=== PATIENT | male | born 1960 | race Caucasian/White ===

== ENCOUNTER → 2024-06-30 16:24 | Outpatient (REF) | payer OTHER, SELFPAY | LOC: RAD 16:24 | PROVIDERS: ATTENDING PHYSICIAN Physician Assistant Medical; FAMILY PHYSICIAN Student in an Organized Health Care Education/Training Program | DX: M79.89 Other specified soft tissue disorders (principal) | CPT/HCPCS: 76882 ==

== ENCOUNTER 2024-07-08 19:32 | Inpatient (IN) | payer OTHER, SELFPAY ==
[2024-07-08] VITALS (7 sets, daily range): BP systolic 116–145; BP diastolic 59–104; BMI 43.9; BMI 44.3
--- NOTE | 2024-07-08 11:52 | ED.GENMED ---
History of Present Illness
<Nelly Guillory PA-C - Last Filed: 07/08/24 18:24>
General
Chief Complaint: Skin Problem
Source: patient
Exam Limitations: none
Time Seen by Provider: 07/08/24 11:49
Nursing documentation reviewed up to this point in time: agreed with
History of Present Illness
History of Present Illness:
This is a 63 y/o male with no past medical history presents emergency department today with concerns of swelling and redness of his left lower extremity. Patient states that this all started after he fell a few weeks ago. Patient states that he
was climbing up onto a boat when he fell on his left side onto the deck. Patient states that he had a small wound under his left thigh from this and then states that 2 weeks later, he started develop redness, swelling in his left thigh and
eventually his swelling progressed to his foot. Patient states that he has some pain with this as well. Patient denies any loss of sensation, denies any inability to ambulate. Patient saw his PCP who referred him to a general surgeon who ordered
a CT angio but it was not able to be completed because the insurance was taking too long to approve it. Patient denies any dizziness, lightheadedness, chest pain, shortness of breath. Patient denies any other injuries. Patient denies any fevers
or chills.
Review of Systems
<Nelly Guillory PA-C - Last Filed: 07/08/24 18:24>
Review of Systems
All Other Systems: ROS reviewed and negative except as documented in HPI and ROS
Phy Exam
<Nelly Guillory PA-C - Last Filed: 07/08/24 18:24>
Physical Exam
Physical Exam:
General: Patient is well appearing and in no acute distress; non-toxic
Skin: Warm and dry, abrasion noted to the left posterior thigh with surrounding erythema
Head: Normocephalic, atraumatic
Eyes: Sclera non-icteric. EOMs intact.
Cardiac: Regular rate
Peripheral Vascular: Swelling noted to the left lower extremity from the thigh to the dorsum of the foot. 2+ DP and PT pulses bilaterally.
Pulm: Normal respiratory effort
Musculoskeletal: Tenderness to palpation of the
Neuro: CN II-XII intact, no focal neurologic deficits.
Psychiatric: Appropriate mood and affect.
Course
<Nelly Guillory PA-C - Last Filed: 07/08/24 18:24>
Orders/Labs/Results
Orders:
Orders
07/08/24 12:12
CT Abd Aorta Angio W/ Run Off Urgent
Reason For Exam: left lower extremity redness and swelling
07/08/24 12:36
Complete Blood Count/With Diff Urgent
Comprehensive Metabolic Panel Urgent
PTT Urgent
Prothrombin Time Urgent
07/08/24 Dinner
Regular
07/08/24 15:47
Code Status As Directed
Resuscitation Status: Full Code
HYDROmorphone [Dilaudid] 0.5 mg IV Q2HPRN PRN
Ondansetron Injectable [Zofran] 4 mg IV Q6HPRN PRN
Activity As Directed
Activity Level: Out of Bed-Early Mobility
Intake/ Output As Directed
Frequency: Per unit guidelines
Vital Signs As Directed
Frequency: Per unit guidelines
07/08/24 16:00
Acetaminophen [Tylenol] 650 mg PO Q4HWA
07/09/24 02:00
Normosol (Mult Electrolytes) [Normosol-R/Plasmalyte-A] 1,000 ml IV 75 mls/hr
07/09/24 Breakfast
NPO
Allow oral meds: Yes
Allow clear liquids: No
NPO with Ice Chips: No
07/09/24 09:00
CeFAZolin SODIUM [Ancef] 3,000 mg Syringe [Syringe-Pump] 0 ml IV PRE PROCEDURE
Abnormal Lab Results
07/08/24
12:36
RBC 4.52 L 10^6/uL
(4.70-6.10)
Hgb 12.9 L g/dL
(13.0-18.0)
Hct 37.5 L %
(39.0-52.0)
Abs Immat Gran (auto) 0.1 H 10^3/uL
(0-0.05)
Absolute Monos (auto) 0.8 H 10^3/uL
(0.1-0.6)
Absolute Eos (auto) 0.8 H 10^3/uL
(0-0.7)
Immature Gran % 0.6 H %
(0-0.5)
Lymphocytes % 15.4 L %
(20.5-51.1)
Monocytes % 10.0 H %
(1.7-9.3)
Eosinophils % 10.1 H %
(0-6)
Glucose 121 H mg/dl
(70-99)
07/08/24 12:36
07/08/24 12:36
Vital Signs
Initial and Last Documented VS:
Initial Vital Signs
Temp Pulse Resp BP Pulse Ox
98.1 F 88 18 145/104 96
07/08/24 11:43 07/08/24 11:43 07/08/24 11:43 07/08/24 11:43 07/08/24 11:43
Last Documented Vital Signs
Temp Pulse Resp BP Pulse Ox
98.5 F 86 20 136/82 99
07/08/24 16:48 07/08/24 16:48 07/08/24 16:48 07/08/24 16:48 07/08/24 16:48
<Martir Mendez MD - Last Filed: 07/08/24 12:26>
Orders/Labs/Results
Orders:
Orders
07/08/24 12:12
CT Abd Aorta Angio W/ Run Off Urgent
Reason For Exam: left lower extremity redness and swelling
07/08/24 12:36
Complete Blood Count/With Diff Urgent
Comprehensive Metabolic Panel Urgent
PTT Urgent
Prothrombin Time Urgent
07/08/24 Dinner
Regular
07/08/24 15:47
Code Status As Directed
Resuscitation Status: Full Code
HYDROmorphone [Dilaudid] 0.5 mg IV Q2HPRN PRN
Ondansetron Injectable [Zofran] 4 mg IV Q6HPRN PRN
Activity As Directed
Activity Level: Out of Bed-Early Mobility
Intake/ Output As Directed
Frequency: Per unit guidelines
Vital Signs As Directed
Frequency: Per unit guidelines
07/08/24 16:00
Acetaminophen [Tylenol] 650 mg PO Q4HWA
07/09/24 02:00
Normosol (Mult Electrolytes) [Normosol-R/Plasmalyte-A] 1,000 ml IV 75 mls/hr
07/09/24 Breakfast
NPO
Allow oral meds: Yes
Allow clear liquids: No
NPO with Ice Chips: No
07/09/24 09:00
CeFAZolin SODIUM [Ancef] 3,000 mg Syringe [Syringe-Pump] 0 ml IV PRE PROCEDURE
Abnormal Lab Results
07/08/24
12:36
RBC 4.52 L 10^6/uL
(4.70-6.10)
Hgb 12.9 L g/dL
(13.0-18.0)
Hct 37.5 L %
(39.0-52.0)
Abs Immat Gran (auto) 0.1 H 10^3/uL
(0-0.05)
Absolute Monos (auto) 0.8 H 10^3/uL
(0.1-0.6)
Absolute Eos (auto) 0.8 H 10^3/uL
(0-0.7)
Immature Gran % 0.6 H %
(0-0.5)
Lymphocytes % 15.4 L %
(20.5-51.1)
Monocytes % 10.0 H %
(1.7-9.3)
Eosinophils % 10.1 H %
(0-6)
Glucose 121 H mg/dl
(70-99)
07/08/24 12:36
07/08/24 12:36
Vital Signs
Initial and Last Documented VS:
Initial Vital Signs
Temp Pulse Resp BP Pulse Ox
98.1 F 88 18 145/104 96
07/08/24 11:43 07/08/24 11:43 07/08/24 11:43 07/08/24 11:43 07/08/24 11:43
Last Documented Vital Signs
Temp Pulse Resp BP Pulse Ox
98.5 F 86 20 136/82 99
07/08/24 16:48 07/08/24 16:48 07/08/24 16:48 07/08/24 16:48 07/08/24 16:48
Tyralt;Nelly Guillory PA-C - Last Filed: 07/08/24 18:24>
MDM/Problems Addressed
Differential Diagnosis Includes:
ddx include cellulitis, hematoma, infected hematoma, dvt, abrasion, abscess
MDM/Problems Addressed:
This is a 63 y/o male with no past medical history presents emergency department today with concerns of swelling and redness of his left lower extremity. Patient states that this all started after he fell a few weeks ago. Patient states that he
was climbing up onto a boat when he fell on his left side onto the deck. He saw Dr. Wu as outpatient who is requesting CT angiography to assess for active bleeding, as well as blood work. This was obtained which reveals a posttraumatic plan to
perform fluid collection within the lateral subcutaneous tissues of the left lower extremity just above the knee. Dr. Wu came to evaluate the patient in the emergency department who plans to operate for surgical evacuation of the hematoma.
Patient admitted to general surgery service.
Chronic conditions affecting care:
n/a
Acute Exacerbation and/or Progression of Chronic Illness:
n/a
<Nelly Guillory PA-C - Last Filed: 07/08/24 18:24>
*Pulse Oximetry
Patient hypoxic: no
*Critical Care Note
Total Time (30-74mins, 75-104mins- exclusive of procedures): Not Applicable
Data Reviewed
Review of Other/Old Records Reveals: Records (Reviewed previous documentation from H&P from contusion of left thigh, patient had a left thigh mass which was removed operatively in the past) and Discharge Summary (no discharge summaries to review)
Source: patient and records
Prescriptions/Medications Considered But Not Given:
n/a
Further Testing Considered But Not Given:
n/a
<Nelly Guillory PA-C - Last Filed: 07/08/24 18:24>
Patient Management
Escalation/DeEscalation of care consider admission/obs:
Patient referred for admission
ED Attending Note
<Nelly Guillory PA-C - Last Filed: 07/08/24 18:24>
-
Portions of this chart may have been created with voice recognition software.� Occasional wrong word or��sound alike� substitutions may have occurred due to the inherent limitations of voice recognition software.
<Martir Mendez MD - Last Filed: 07/08/24 12:26>
ED Attending Note
Patient seen and examined by attending physician: Yes
I performed the substantive portion of visit, reviewed & personally made and approve the management plan that is documented in note by myself or DWAYNE.: Yes
ED Attending Note:
I have seen and evaluated the patient with a [id number] encounter. I have spoken to the [PA] and involved in the medical history, the physical exam, medical decision making.
Evaluation and management service: agree unless noted differently below.
Results interpretation: agree unless noted differently below.
63-year-old man presenting to the emergency department with swelling to his left leg. Patient states June 05 he fell off his boat onto the dock landing on his left thigh. About a week ago noticed some swelling to the area. Saw his primary care
doctor who recommended surgery follow-up. He was evaluated by Dr. Nash who ordered an outpatient CT scan however there was difficulty in obtaining it and patient's swelling did worsen over the past week so APPRENTICE PAINTER HAND who told him to come to the
emergency department for further evaluation. Some mild numbness tingling around the area. He is not on a blood thinner. No weakness. No fevers or chills. No drainage. On exam patient does have a large hematoma at the lateral aspect of the
distal thigh that wraps around to the posterior aspect with associated erythema and warmth. He does have a strong distal pulse. Differential consists of hematoma versus did hematoma/abscess versus active bleed given that it is worsening. Will
check blood work and obtain CTA. Disposition pending blood work/imaging and discussion with surgery.
Discharge Plan
Departure
Patient Disposition: Admit
Date of Disposition: 07/08/24
Time of Disposition: 15:08
Presentation/result/management discussed w/ accepting MD/DO: Dr. Wu, General Surge
Discharge Problem:
Hematoma of left thigh
Prescriptions:
No Action
naproxen sodium [Aleve] 220 mg Tablet
440 mg PO BIDPRN PRN (Reason: mild pain)
Referrals:
Jaciel Frausto MD [Family Provider] -
Interventions
Interventions:
*Risk Screen - Suicide Last Done: 07/08/24 11:43
*General Assessment Last Done: 07/08/24 11:43
*Neglect/Abuse Screening Last Done: 07/08/24 11:43
ED- Fall Risk Assessment Last Done: 07/08/24 12:38
*ED COVID-19 Vaccine History Last Done: 07/08/24 12:38
ED-Musculoskeletal Assessment Last Done: 07/08/24 12:38
ED-Skin Assessment Last Done: 07/08/24 12:38
Discharge Date and Time
Print Language: ALBANIAN
[2024-07-08 12:44] LABS: % Basophils 1.2 % (0-2); % Eosinophils 10.1 % (0-6); % Immature Granulocytes 0.6 % (0-0.5); % Lymphocytes 15.4 % (20.5-51.1); % Neutrophils 62.7 % (42.2-75.2); Absolute Basophils 0.1 10^3/uL (0-0.2); Absolute Eosinophils 0.8 10^3/uL (0-0.7); Absolute Immature Granulocytes 0.1 10^3/uL (0-0.05); Absolute Lymphocytes 1.2 10^3/uL (1.2-3.4); Absolute Monocytes 0.8 10^3/uL (0.1-0.6); Absolute Neutrophils 4.9 10^3/uL (1.4-6.5); Hematocrit 37.5 % (39.0-52.0); Hemoglobin 12.9 g/dL (13.0-18.0); Mean Corp Hgb Conc. 34.4 g/dL (33.0-37.0); Mean Corpuscular Hgb 28.5 pg (27.0-31.0); Mean Platelet Volume 9.4 fL (7.4-10.4); Nucleated Red Blood Cells % 0 % (-); Platelet Count 342 10^3/uL (130-400); Red Blood Cell Count 4.52 10^6/uL (4.70-6.10); Red Cell Dist. Width 12.2 % (11.5-14.5); White Blood Cell Count 7.8 10^3/uL (4.8-10.8)
[2024-07-08 12:52] LABS: INR 1.02
[2024-07-08 12:53] LABS: APTT 29.4 Sec (23.4-35.0)
[2024-07-08 13:07] LABS: ALT (SGPT) 38 U/L (0-50); AST (SGOT) 24 U/L (17-59); Albumin 3.8 g/dl (3.5-5.0); Alkaline Phosphatase 87 U/L (38-126); Blood Urea Nitrogen 20 mg/dl (9-20); Calcium 9.3 mg/dl (8.4-10.2); Carbon Dioxide 26 mmol/L (22-30); Chloride 104 mmol/L (98-107); Estimated Creatinine Clearance > 125 ml/min; Glucose 121 mg/dl (70-99); Potassium 4.3 mmol/L (3.5-5.1); Sodium 142 mmol/L (135-145); Total Bilirubin 1.1 mg/dl (0.2-1.3); Total Protein 6.8 g/dl (6.3-8.2); eGFR > 60.00
--- NOTE | 2024-07-08 15:20 | HPS.HSE ---
Family Physician
-
Family Physician: Jaicel Frausto
Chief Complaint
-
Left lower extremity pain and swelling
History of Present Illness
This is a 63-year-old male who presented to my office on 07/01/2024 for swollen left lateral thigh in the setting of a recent trauma/fall from standing onto a dock while trying to [place] a boat at the beginning of the month. There was some bruising
initially but a week before he saw me he developed's worsening swelling which prompted his visit. On exam he was motor sensor and intact but I was concerned for potential ongoing bleeding and ordered CTA which unfortunately his insurance company
was not able to complete in a timely manner. Since then the patient's symptoms have worsened which prompted him to come to the ED to be further evaluated. He states that his pain is significantly worse and he has noticed worsening redness along
the lateral aspect of his thigh. He denies any distal motor or sensory deficits but he feels like the skin around the thigh is certainly having some new numbness.
Medical History
Past Medical History
Past Medical History: Reports None
Past Surgical History: Reports Other
Additional Past Surgical History:
Of note, the patient did have an incision and drainage/evacuation of a hematoma on the medial aspect of his left lower extremity also secondary to a trauma. This was complicated by a prolonged wound healing course.
Social History
Tobacco: Non-smoker
Family History
Family History: Not pertinent
Allergies / Home Medications
Allergies reflects when Allergies were last updated in [email or web address].
Home Medications with original date entered in [email or web address]
Allergy/Medication List:
None
Review of Systems
-
A 12 point ROS was completed and negative except as noted: Yes
Physical Exam
Vital Signs
Vital Signs
Temp Pulse Resp BP Pulse Ox
98.5 F 77 20 121/73 97
07/08/24 12:38 07/08/24 12:38 07/08/24 12:38 07/08/24 13:00 07/08/24 13:15
Physical Exam
General: Well Developed
Respiratory: Clear
GI: Soft and Non Tender
Musculoskeletal: Edema, Left Lower Extremity and Other (The patient has significant swelling in the left upper extremity with worsening redness over the lateral and posterior aspect of the thigh.)
Neuro: Awake, AO x 3, No Motor Deficits and No Sensory Deficits
Laboratory Results
-
07/08/24 12:36
07/08/24 12:36
Laboratory Results
PT 14.0 Sec (11.4-14.6) 07/08/24 12:36
INR 1.02 07/08/24 12:36
APTT 29.4 Sec (23.4-35.0) 07/08/24 12:36
Total Bilirubin 1.1 mg/dl (0.2-1.3) 07/08/24 12:36
AST 24 U/L (17-59) 07/08/24 12:36
ALT 38 U/L (0-50) 07/08/24 12:36
Alkaline Phosphatase 87 U/L (38-126) 07/08/24 12:36
Data Reviewed
-
CT Scan: Image Personally Visualized and interpreted, Discussed with Physician and Discussed with Patient
Lab Data: Labs Reviewed by me and Discussed with Patient
Impression/Plan
-
IMPRESSION:
This is a 63-year-old male who presents with atraumatic left lower extremity hematoma that though no active bleed was noted on CTA, has worsened over the past week with now evolving skin threat. Motor or sensory still intact. Vitals stable.
Hemoglobin also stable.
PLAN:
Will admit to the general surgery service.
Rest, elevate leg as able, ice.
Okay for diet, n.p.o. at midnight.
No role for antibiotics at this time. 3 g of Ancef ordered on-call to the OR
Will plan for an open evacuation of the left lower extremity hematoma and possible closure over a drain either with myself or Dr. Padron.
Risks/Benefits/Alternatives, expected postoperative course and possible complications (bleeding, infection, injury to surrounding structures, acute/chronic pain) discussed at length. Patient wishes to proceed with surgery. All questions answered.
I spent 75 minutes in total for the care of this patient today including direct patient care and counseling, reviewing labs, imaging, coordination of care, as well as documentation.
[2024-07-08] MEDS: TYLENOL 650 MG PO (21:02)
[2024-07-08] MEDS: TYLENOL PO (21:05)
--- NOTE | 2024-07-08 21:20 | PTCARENOTE ---
Pt arrive to [facility] at 2015 from the ED on a stretcher. Pt walked to the bed from stretcher. Head to toe assessed and admission questions complete. Pt oriented to room and call stevens. Bed locked and in lowest position. Care ongoing.
[2024-07-09] VITALS (9 sets, daily range): BP systolic 126–140; BP diastolic 55–78
[2024-07-09] MEDS: TYLENOL PO ×3 (00:40→08:50)
[2024-07-09] MEDS: NORMOSOL-R/PLASMALYTE-A 1000 IV ×2 (01:57→20:14)
--- NOTE | 2024-07-09 06:03 | PTCARENOTE ---
1st set of CHG wipes complete. Linens and gown changed.
--- NOTE | 2024-07-09 08:46 | W.PN.GS2 ---
Today's Communication / Plan
-
`
Assessment / Plan
-
Assessment: 63 y/o male with large subcutaneous abscess/infected hematoma s/p fall 1 month ago with surrounding cellulitis
AFVSS
discussed indications for operative drainage which patient is in agreement with. I&D LLE abscess reviewed in detail including anticipated incision location, leaving wound open to heal by secondary intention vs primary closure over drains, need for
follow up washouts and wound management in the OR.
Plan: start Zosyn
will culture in OR
pt on OR schedule for today
Subjective Data
-
Date of Service: July 09, 2024
pt seen and examined
continued pain/swelling in left lateral LE
some drainage now noted - purulent
Objective Data
-
Intake and Output
07/08/24 07/09/24 07/10/24
06:59 06:59 06:59
Intake Total 615 / 615
Output Total 400 / 400
Balance 215 / 215
Intake:
Oral fluids 240 / 240
IV fluids (Total) 375 / 375
Output:
Urine, Voided 400 / 400
Other:
Number of approximated MODERATE 1
amounts of urine
Vital Signs
Temp Pulse Resp BP Pulse Ox
98.3 F 72 15 140/55 94
07/09/24 07:46 07/09/24 07:46 07/09/24 07:46 07/09/24 07:46 07/09/24 07:46
Lab Results
07/08/24 12:36
07/08/24 12:36
Calcium 9.3 mg/dl (8.4-10.2) 07/08/24 12:36
Total Bilirubin 1.1 mg/dl (0.2-1.3) 07/08/24 12:36
AST 24 U/L (17-59) 07/08/24 12:36
ALT 38 U/L (0-50) 07/08/24 12:36
Alkaline Phosphatase 87 U/L (38-126) 07/08/24 12:36
Total Protein 6.8 g/dl (6.3-8.2) 07/08/24 12:36
Albumin 3.8 g/dl (3.5-5.0) 07/08/24 12:36
Physical Exam
-
NAD AAOx3
LLE: motor sensory intact. lateral area superior to knee with large area of fluctuance, induration, erythema and warmth to touch
small skin ulcer with purulent drainage
[2024-07-09] MEDS: ZOSYN 50 IV ×3 (09:59→21:43)
--- NOTE | 2024-07-09 10:50 | CM ---
Patient seen at bedside.
IA completed.
Await OR - L leg hematoma
Patient lives in a 3 story home, 2 steps to enter. flight of steps down to basement & up to 2nd floor.
PLOF: Independent, driving
DME: Denies any equipment
Denies housing/transportation/utilities/food insecurities.
Had [facility] 4 years ago does not remember agency, denies rehab
Currently no needs.
PCP: Jaciel Frausto
Pharmacy: [facility]
PLAN: Home, CM to follow for needs.
--- NOTE | 2024-07-09 11:37 | PN.CDI ---
CDI
- -
CDI:
Physician Documentation Request
Admit Date: 07/08/24 19:32
Dear Doctor Nereida,
Clinical Indicators:
Height: 6ft 5in
Weight: 373 lbs 4.8 oz
BMI: 44.3
07/09 note, (obese)
If possible, please provide an associated diagnosis related to the abnormal BMI (> or = to 40), such as:
Obesity
BMI is not significant
Other
Use of terms such as suspected, likely, concern for, or probable (associated with a specific diagnosis that is being evaluated, monitored, or treated as if it exists) are acceptable and can be coded in the inpatient setting, when documented at the
time of discharge.
Thank you,
Randi Arnold RN BSN
CDI Specialist
available via [employer] text
Please use your independent medical judgment in providing your response.
--- NOTE | 2024-07-09 12:04 | W.SUR.PREOP ---
Pre-Operative Surgical Note
-
I have examined this patient prior to the performance of the scheduled procedure.
The patient's condition is unchanged from the time of the current History and
Physical and the patient is able to undergo the scheduled procedure.
--- NOTE | 2024-07-09 14:14 | W.IMMPOSTOP ---
Addendum entered and electronically signed by Franck Padron MD 07/09/24 14:25:
#[id number]
Original Note:
Surgical Immed Post Op Note
-
Primary Surgeon: Nereida
Assisting Surgeon: Tita Jorgensen
Pre-op Diagnosis: Left lower extremity abscess
Post-op Diagnosis: Left lower extremity subcutaneous abscess
Procedure Performed: Incision and drainage left lower extremity abscess with pulse irrigation lavage washout and primary closure over close suction drain
Anesthesia Type: LMA +0.25% Marcaine 20 mL
Specimen / Cultures: None/abscess fluid for culture
Estimated Blood Loss: 30 mL
Complications: None immediate
Operative Findings: Deep subcutaneous abscess cavity without muscle involvement. No necrotic tissue. 3 L saline utilized for pulse irrigation lavage/debridement of cavity. 19 Venkatesh drain placed for close suction drainage of abscess cavity. Skin
closed with interrupted 2-0 nylon sutures.
Plan: Continue Zosyn pending culture results and sensitivities
Local wound care
Maintain NELY
Updated patient's postoperatively via phone call
[2024-07-09] MEDS: TYLENOL 650 MG PO (16:03)
--- NOTE | 2024-07-09 16:15 | PTCARENOTE ---
pt received from PACU to room 2112 at 1605. pt arrived drowsy but easily arousable. LLE dsg w/william wrap clean and dry, NELY drain present w/minimal serosanguineous output. + neurovascular check to LLE. + pedal pulse noted. at bedside. care
ongoing.
[2024-07-09] MEDS: LOVENOX 40 MG SC (18:08)
[2024-07-09] MEDS: DILAUDID 0.5 MG IV ×2 (18:18→21:51)
[2024-07-10] VITALS (7 sets, daily range): BP systolic 111–138; BP diastolic 64–86
[2024-07-10] MEDS: ZOSYN 50 IV ×4 (04:13→21:40)
[2024-07-10 06:06] LABS: Hematocrit 36.9 % (39.0-52.0); Hemoglobin 12.3 g/dL (13.0-18.0); Mean Corp Hgb Conc. 33.3 g/dL (33.0-37.0); Mean Corpuscular Hgb 29.1 pg (27.0-31.0); Mean Corpuscular Volume 87.4 fL (80.0-94.0); Mean Platelet Volume 9.6 fL (7.4-10.4); Platelet Count 375 10^3/uL (130-400); Red Blood Cell Count 4.22 10^6/uL (4.70-6.10); Red Cell Dist. Width 11.9 % (11.5-14.5); White Blood Cell Count 7.3 10^3/uL (4.8-10.8)
[2024-07-10] MEDS: NORMOSOL-R/PLASMALYTE-A IV (06:26)
--- NOTE | 2024-07-10 09:38 | W.PN.GS2 ---
Addendum entered and electronically signed by JUAN LUIS Cunningham 07/10/24 15:41:
Dx of morbid obesity present
Original Note:
Today's Communication / Plan
-
local wound care and IV abx
Assessment / Plan
-
Assessment: 63 y/o male with large subcutaneous abscess/infected hematoma s/p fall 1 month ago with surrounding cellulitis
POD #1 Incision and drainage left lower extremity abscess with pulse irrigation lavage washout and primary closure over close suction drain
AFVSS
OR cx pending
Dressing changed at bedside
Plan: continue Zosyn
follow wound cx
local wound care
anticipate transition to PO abx and discharge tomorrow
drain will remain in place upon dc. consult placed to Cm for [facility] arrangements
Subjective Data
-
Date of Service: July 10, 2024
Patient seen and examined at bedside with Dr. Wu. Denies significant pain. OOB to chair.
Objective Data
-
Intake and Output
07/09/24 07/10/24 07/11/24
06:59 06:59 06:59
Intake Total 615 / 615 3540 / 3540
Output Total 400 / 400 1620 / 1620
Balance 215 / 215 1920 / 1920
Intake:
Oral fluids 240 / 240 1740 / 1740
IV fluids (Total) 375 / 375 1700 / 1700
IV piggybacks 100 / 100
Output:
Drain Output (Total) 70 / 70
Left Upper Leg Nakul-Taylor 30 / 30
Right Lower Leg Nakul-Taylor 40 / 40
Urine, Voided 400 / 400 1550 / 1550
Other:
Number of approximated MODERATE 1
amounts of urine
Vital Signs
Temp Pulse Resp BP Pulse Ox
97.6 F 62 15 118/72 97
07/10/24 07:18 07/10/24 07:18 07/10/24 07:18 07/10/24 07:18 07/10/24 07:18
Lab Results
07/10/24 04:48
07/08/24 12:36
Calcium 9.3 mg/dl (8.4-10.2) 07/08/24 12:36
Total Bilirubin 1.1 mg/dl (0.2-1.3) 07/08/24 12:36
AST 24 U/L (17-59) 07/08/24 12:36
ALT 38 U/L (0-50) 07/08/24 12:36
Alkaline Phosphatase 87 U/L (38-126) 07/08/24 12:36
Total Protein 6.8 g/dl (6.3-8.2) 07/08/24 12:36
Albumin 3.8 g/dl (3.5-5.0) 07/08/24 12:36
Physical Exam
-
NAD AAOx3
LLE: motor sensory intact. lateral incision superior to knee with intact sutures, ecchymosis medially with mild edema present. NELY drain with SSF. Dressing changed.
[2024-07-10] MEDS: DILAUDID 0.5 MG IV (11:40)
--- NOTE | 2024-07-10 11:58 | CM ---
Met with patient at bedside; Case Management Consults completed
Explained to patient that his physician recommended home health services since he was going home with NELY Drain
Home Health agency options identified; preference is [facility]; Referral sent and acknowledged via [employer] Text to [facility] liaison
Plan: discharge to home when medically stable with home health services
--- NOTE | 2024-07-10 13:09 | VNURNOTE ---
Home Health Liaison met with patient at bedside to discuss [facility] nurse/therapy, visits, schedule and homebound status. Patient is agreeable and understands that visits at home will be 2-3 x per week to assess and teach medical and drain management.
[facility] brochure provided with contact information. Patient is aware that [facility] will contact them for start of care in 1-2 days after discharge from .
[facility] referral completed in [facility].
[2024-07-10] MEDS: LOVENOX 40 MG SC (17:09)
[2024-07-10] MEDS: TORADOL 10 MG IV (21:46)
[2024-07-11 03:07] VITALS: BP 134/83
[2024-07-11] MEDS: ZOSYN 50 IV (04:21)
[2024-07-11 07:10] VITALS: BP 131/84
--- NOTE | 2024-07-11 11:20 | CM ---
Pt discharged prior to being seen by CM
Family provided transport home
[facility] to follow
Plan - home with [facility]
--- NOTE | 2024-07-11 14:11 | W.DCSUMMARY ---
Discharge Summary
Discharge Data
Date of Admission: 07/08/24
Date of Discharge: 07/11/24
-
Pending Results: No
Hospital Course
Mr Howell is a 63 yo male who was being followed initially in the outpatient setting for a swollen left thigh after a recent trauma. Edema and pain worsened with development of erythema prompting him to present to the ED for evaluation. CTA
imaging demonstrated a fluid collection without active arterial bleeding. He was initiated on IV antibiotics and taken to the OR for incision and drainage of a subcutaneous abscess with washout and primary closure over closed suction drain. OR
cultures with MSSA. he was discharged on PO antibiotics with drain in place with outpatient follow up planned in the coming days for reevaluation of the wound and eventual drain removal.
Discharge Plan
-
Patient Disposition: Home (Routine Discharge)
Discharge Diagnosis/Procedures: Infected hematoma in the left thigh status post incision and drainage with washout
Condition: Good
Diet: Regular
Activity: As tolerated
Additional Activity: Be careful to secure your drain. If it becomes dislodged, please call your surgeon
Bathing Restrictions: OK to Shower
Other Services: VN
Wound Care: Remove your dressing daily and shower. Once your leg is dry, cover the suture line with xeroform (vaseline gauze) and place dry gauze pad over it. Cover the drain site with a dry gauze sponge as well. Use kerlix gauze to hold the
dressings in place by wrapping around your thigh and avoid placing tape on your skin. Wrap your thigh with KOKO bandage to provide light compression.
Activity Restrictions/Additional Instructions:
NELY DRAIN CARE INSTRUCTIONS
General Information:
Drains help to keep fluid from collecting by removing the extra blood and fluid from under the skin. A drain is temporary. It stays in place until the drainage has slowed down or stopped. Your doctor or nurse will decide when each drain should be
removed: This is usually after each drain has 30cc or less in 24 hours for 2 days in a row. When this happens, you should call the [facility] to schedule an appointment with the nurses to have it/them removed. This is usually not painful
and only takes a few seconds.
How do I care for the drains at home?
Pin your drains to your clothing by using a safety pin through the plastic loop on the top of the bulb. If the drain is not attached to your clothing, it may pull out from under your skin. Also, a drain usually feels more comfortable when it�s
attached. To care for the drain at home, you will have to empty the drain, ``strip�� the drain tubing, and change the dressing if applicable. See the following pages for instructions on how to do this.
What problems may I have with my drain?
� The bulb is not compressed- The bulb may not be squeezed tightly enough, the plug may not be closed securely, or the tube has slipped out a bit and is leaking. Follow the instructions on how to empty the drain.
If the bulb remains expanded, then notify your doctor or nurse during business hours.
� No drainage or sudden decrease in amount of drainage- This is usually due to clots in the drain. Follow the instructions on how to strip the drain tubing.
� The tube accidentally falls out- If this happens, place a dry gauze dressing over the drain site and notify your doctor or nurse during business hours.
� Increased redness, swelling, or heat around the tube insertion site- This may be a sign of infection. Take your temperature: if it is higher than 101F or 38.8C, call your doctor or nurse immediately. Otherwise, notify your doctor or nurse during
business hours and keep the dressing clean and dry.
Post-Surgical Drain Care:
After surgery, you will have one or two drains, called a Nakul-Taylor (NELY) drain, placed near the incision. This device collects fluid, under suction, from your surgical area. The drain promotes healing and recovery, and reduces the chance of
infection. The drain will be in place until the drainage slows enough for your body to reabsorb fluid on its own. While you are hospitalized the nursing staff will care for the drain and teach you to continue to do so at home.
How to Empty Your NELY Drain
Note: Wash your hands thoroughly before emptying your drain(s).
� Have the plastic measuring cup from the hospital ready to collect and measure the drainage. Please measure the output at the same two times every 24 hours and record the amount.
� Unpin the drain from your clothing.
Open the top of the drain. Turn the drain upside down and squeeze the contents of the bulb into the measuring cup. Be sure to empty the bulb as completely as possible. Flush the contents in the toilet.
� Use the drain output log chart to record the amount of drainage twice a day or any time the bulb is full. Record the total for 24 hours for each drain you have.
� If you have more than one drain, remember to record the drainage from each drain separately.
� To prevent infection, do not let the stopper or top of the bottle touch the measuring cup or any other surface.
� Use one hand to squeeze all of the air from the drain. With the drain still squeezed, use your other hand to replace the top. This creates the suction necessary to remove the fluids from your body.
� Pin the drain back on your clothing to avoid pulling it out accidently.
� Wash your hands again. Remember to wash your hands before and after the procedure to reduce the risk of infection.
Stripping the Tube
Often the tube may become blocked with products of healing or clot. If you do not have drainage, then:
� Hold the tube near where it is inserted in to the skin with your one hand.
� Use the other hand to hold a pencil and gently squeeze the tubing with the pencil while moving it down toward the drain away from your skin. This forces the more sold material into the bulb for better drainage.
� Repeat as necessary to start the draining again.
Removal of the Tube
� Please call the office to arrange a time to come in to have the drain removed.
� Please call the office [phone] if the output becomes thicker or has a bad odor or if you have any questions or concerns
Referrals:
Franck Padron MD [Active] - in one week
Jaciel Frausto MD [Family Provider] -
Prescriptions:
New
doxycycline hyclate 100 mg capsule
100 mg PO BID Qty: 14 0RF
acetaminophen 325 mg tablet
650 mg PO Q4HPRN PRN (Reason: mild pain) Qty: 1 0RF
Continued
naproxen sodium [Aleve] 220 mg Tablet
440 mg PO BIDPRN PRN (Reason: mild pain)
Discharge Orders:
Discharge Patient (As Directed); Ordered 07/11/24
Ordered By: Dayan Mast
Discharge Date and Time
Discharge Date/Time: 07/11/24 09:38
Print Language: URDU
== END 2024-07-11 09:38 | disposition home health service (06) | DRG 580 ==
LOC: 2 SOUTH 19:32
PROVIDERS: Physician Assistant; ADMITTING PHYSICIAN Surgery; ATTENDING PHYSICIAN Surgery; EMERGENCY PHYSICIAN Student in an Organized Health Care Education/Training Program; FAMILY PHYSICIAN Family Medicine
PROC: 0JDM0ZZ Extraction of Left Upper Leg Subcutaneous Tissue and Fascia, Open Approach (ICD-10-PCS; 2024-07-09)
DX: L02.416 Cutaneous abscess of left lower limb (principal); Z68.41 Body mass index [BMI] 40.0-44.9, adult; E66.01 Morbid (severe) obesity due to excess calories; W10.2XXA Fall (on)(from) incline, initial encounter; S70.12XA Contusion of left thigh, initial encounter
CPT/HCPCS: 75635; 80053; 85025; 85027; 85610; 85730; 87070; 87075; 87147; 87186; 87205; 99285; Q9967